=== PATIENT | female | born 1955 | race Caucasian/White ===

== ENCOUNTER → 2017-05-16 | Outpatient (CLI) | payer OTHER ==
--- NOTE | 2017-05-16 13:26 | RAD ---
CT abdomen/pelvis without contrast 05/16/2017 2:00 AM Indication: Bilateral flank pain and lower pelvic pain on the left for 5 days. Comparison: None available Technique: Multiple axial CT images of the abdomen and pelvis were obtained without intravenous contrast. Coronal and sagittal reformats are provided. Findings: There is a 4 mm solid noncalcified pulmonary nodule in the medial right costophrenic angle which may be attributable to subsegmental atelectasis in this region. Heart size is within normal limits. Evaluation of the solid abdominal viscera is limited by lack of intravenous contrast. No suspicious hepatic masses are identified. The gallbladder is surgically absent. The spleen, bilateral adrenal glands and pancreas are normal in appearance. The abdominal aorta is mildly tortuous. There are no pathologically enlarged lymph nodes in the abdomen or pelvis. There is no free fluid or free intraperitoneal air. There is asymmetric parenchymal atrophy involving the right kidney. There is a 2 mm nonobstructing calculus in the midpole the right kidney. There is a 7 mm nonobstructing calculus in the midpole the left kidney. There is a 7 mm nonobstructing calculus in the inferior pole the left kidney. There is mild dilatation of the right ureter and right renal collecting system. There is suggestion of mild urothelial thickening. No definite calculus is identified within the right ureter or urinary bladder. Left renal collecting system and ureter appear normal. Small and large bowel are normal in caliber without evidence for bowel obstruction. 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 No evidence for bowel obstruction. Normal appendix is visualized. No pericolonic inflammatory changes are noted. There is mild to moderate colonic diverticulosis centered in the sigmoid colon without adjacent inflammatory changes. Unit bladder is within normal limits given degree of distention. No suspicious pelvic masses are identified. No suspicious osseous lesions are identified. Impression: 1. There is mild dilatation of the right renal collecting system and right ureter with suggestion of mild urothelial wall thickening. Findings may be seen in the setting of pyelitis and correlation with urinalysis is recommended. Alternatively, findings may be seen in the setting of a recently passed renal calculus. 2. Nonobstructing bilateral renal calculi are visualized, as detailed above. 3. Mild to moderate sigmoid diverticulosis without adjacent inflammatory changes. 4. There is 4 mm nodular density in the medial right lower lobe which may be secondary to subsegmental atelectasis. PQRS Compliance Statement: One or more of the following individualized dose reduction techniques were utilized for this examination: 1. Automated exposure control 2. Adjustment of the mA and/or kV according to patient size 3. Use of iterative reconstruction technique
== END | disposition home or self-care (01) ==
LOC: CT 12:25
PROVIDERS: ATTEND Internal Medicine
DX: K57.30 Diverticulosis of large intestine without perforation or abscess without bleeding (principal); N20.0 Calculus of kidney; Z87.442 Personal history of urinary calculi
CPT/HCPCS: 74176

== ENCOUNTER → 2021-06-21 | Outpatient (CLI) | payer OTHER ==
--- NOTE | 2021-06-21 15:51 | RAD ---
XR RIBS MIN 3 VIEWS RT W/PA CHEST History: Anterior right rib pain. Comparison: None. Technique: PA chest with 3 views of the right ribs. Findings: The lungs are adequately and symmectrically inflated. No airspace consolidation, pleural effusion or pneumothorax. The cardiomediastinal silhoutte and pulmonary vasculature are within normal limits. Norberto gical clips in the right upper quadrant. No rib fracture is identified. Impression: 1. No acute cardiopulmonary process. No rib fracture or sequela identified. Electronically signed by: Xander Duran MD (06/21/2021 3:48 PM) [id number]
== END ==
LOC: RAD 15:20
PROVIDERS: ATTEND Nurse Practitioner Family
DX: R07.81 Pleurodynia (principal); Z98.890 Other specified postprocedural states
CPT/HCPCS: 71101